=== PATIENT | female | born 1995 | race Two or more races ===

== ENCOUNTER 2020-07-06 02:12 | Emergency (ER) | payer OTHER ==
[~2020-07-06] VITALS: Ht 160 cm; Wt 56.7 kg
[2020-07-06 02:12] VITALS: BP 104/70
[2020-07-06] MEDS ORDERED: TDAP [DIPH/PERTUSSIS/TET] 0.5 ML VIAL IM ONE ×2 (02:29→02:30)
--- NOTE | 2020-07-06 03:03 | NUR ---
tech at bedside for suturing of 4-0 prolene 3 on the left lateral leg
--- NOTE | 2020-07-06 03:26 | NUR ---
Patient discharged to home in stable condition. Written and verbal after care instructions given. Patient verbalizes understanding of instruction.
== END 2020-07-06 03:27 | disposition home or self-care (01) ==
LOC: ER 02:19
DX: S81.812A Laceration without foreign body, left lower leg, initial encounter (principal); W22.8XXA Striking against or struck by other objects, initial encounter; Y93.89 Activity, other specified; Y92.89 Other specified places as the place of occurrence of the external cause; Y99.8 Other external cause status
CPT/HCPCS: 90715